=== PATIENT | male | born 1960 | race Hispanic/Latino ===

== ENCOUNTER 2024-05-09 06:10 | Day surgery (SDC) | payer OTHER ==
[2024-05-05 13:19] LABS: BASOPHILS # (AUTO) 0.03 K/uL (0.00-0.20); BASOPHILS % (AUTO) 0.8 % (0.0-5.0); EOSINOPHILS # (AUTO) 0.04 K/uL (0.00-0.70); EOSINOPHILS % (AUTO) 1.1 % (0.0-8.0); HEMATOCRIT 36.2 % (42-54); IMMATURE GRANULOCYTE ABSOLUTE 0.02 K/uL (0-1); LYMPHOCYTES # (AUTO) 1.3 K/uL (1.0-4.8); LYMPHOCYTES % (AUTO) 36.4 % (21.0-51.0); MEAN CORPUSCULAR HEMOGLOBIN 31.9 pg (27.0-33.0); MEAN CORPUSCULAR HGB CONC 33.1 g/dL (32.0-36.0); MEAN CORPUSCULAR VOLUME 96.3 fL (79-99); MONOCYTES # (AUTO) 0.4 K/uL (0.1-1.0); MONOCYTES % (AUTO) 9.6 % (3.0-13.0); NEUTROPHILS # (AUTO) 1.9 K/uL (1.8-7.7); NEUTROPHILS % (AUTO) 51.6 % (40.0-77.0); PLATELET COUNT (AUTO) 238 K/uL (130-400); RED BLOOD CELL COUNT(AUTO) 3.76 MIL/uL (4.50-6.20); RED CELL DISTRIBUTION WIDTH 12.6 % (11.0-15.5); WHITE BLOOD COUNT (AUTO) 3.7 K/uL (4.8-10.8)
[2024-05-05 13:22] VITALS: BP 139/82; PULSE 92; RESP 18; TEMP 97.1
[2024-05-05 13:27] LABS: CREATININE 5.6 mg/dL (0.5-1.3); POTASSIUM 4.1 mmol/L (3.5-5.1)
[2024-05-05 13:31] LABS: INR 1.02 (0.85-1.15); PROTHROMBIN TIME 11.4 SEC (9.6-11.6)
[2024-05-05 13:33] LABS: PARTIAL THROMBOPLASTIN TIME 33.3 SEC (26.3-35.5)
--- NOTE | 2024-05-05 14:23 | EKG ---
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
--- NOTE | 2024-05-06 16:26 | NUR ---
verified called yesterday to verify pt need to hold eliquis 3 days prior. as per janet nurse with dr massey that is correct.
--- NOTE | 2024-05-07 16:32 | NUR ---
REPORT REPORTED EKG TO DR PEREZ. OK TO PROCEED
[2024-05-09] VITALS (14 sets, daily range): BP systolic 112–160; BP diastolic 65–84; PULSE 83–97; RESP 14–18; TEMP 97.1–98.2
[~2024-05-09] VITALS: Ht 172.7 cm; Wt 121.1 kg
[~2024-05-09 06:10] MED LIST: ACET-2247 PO; APIX2.5T PO; BACI1CAP14 PO; COLL30OI TP; EPOE10003 IJ; EZET-87 PO; GABA300T26 PO; INSU100C6 SQ; INSU300I SQ; LINZESS; PANT40TA54 PO; SEVE800PW PO; SULF1TAB41 PO
[2024-05-09] MEDS ORDERED: ceFAZolin SODIUM 1 GM VIAL ONE (06:56)
[2024-05-09] MEDS: 0.9% NACL 500ML IV.SOLN 500 ML IV ONE (07:24)
[2024-05-09] MEDS ORDERED: LIDOCAINE PF 100MG/5ML (2%) SYRINGE 5ML ONE (07:30)
[2024-05-09] MEDS ORDERED: FENTanyl CITRate PF 50 MCG/1 ML 2ML VIAL ONE (07:31)
[2024-05-09] MEDS ORDERED: MIDAZOLAM HCL 1 MG/ML 2ML VIAL ONE (07:31)
[2024-05-09] MEDS ORDERED: proPOFol 10 MG/ML 20ML VIAL IV ONE (07:31)
[2024-05-09] MEDS ORDERED: rocuRONium bROMide 10MG/1ML 5ML VL ONE (07:31)
--- NOTE | 2024-05-09 08:08 | NUR ---
PATIENT WITH BILATERAL WOUNDS TO PLANTAR FEET. PATIENT STATES HAS DRESSING CHANGES DAILY BY HOME HEALTH NURSE.
[2024-05-09] MEDS ORDERED: BUPIvacaine/PF 0.25% 30ML VIAL IJ ONE (08:28)
[2024-05-09] MEDS: ceFAZolin SODIUM 2 GM VIAL IVPB ONE (08:30)
[2024-05-09] MEDS ORDERED: ondanSETRON 4MG INJ ONE (08:39)
[2024-05-09] MEDS ORDERED: GLYCOPYRROLATE 0.2 MG/ML 5 ML VIAL ONE (08:39)
[2024-05-09] MEDS ORDERED: dexaMETHasone SOD PHOSPHATE 4 MG/ML 1ML VIAL ONE (08:39)
[2024-05-09] MEDS ORDERED: NEOSTIGMINE METHYLSULFATE 1MG/ML IV ONE (08:39)
[2024-05-09] MEDS ORDERED: phenylEPHRINE HCL 10 MG/ML 1ML VIAL IV ONE (08:39)
[2024-05-09] MEDS ORDERED: HEParin 10,000 UNIT/10ML (1,000 UNIT/ML) VIAL ONE (09:05)
[2024-05-09] MEDS: IpraTROPium/alBUTERol SULFATE 3 ML SOLUTION IH ONE (10:08)
[2024-05-09] MEDS ORDERED: acetaMINOPHEN 500 MG TABLET ONE (11:05)
[2024-05-09] MEDS: HEParin-NS 1,000 UNIT/500 ML 500 ML IV ONE (11:18)
--- NOTE | 2024-05-09 14:04 | OP ---
Operative Note: DATE OF PROCEDURE: 05/09/24 SURGEON: NAM BLANCO MD CLINICAL PROGRAM DIRECTOR: [] PREOPERATIVE DIAGNOSIS: End-stage renal disease POSTOPERATIVE DIAGNOSIS: End-stage renal disease PROCEDURE: Left upper extremity brachiocephalic fistula creation INDICATIONS: Patient needs access for dialysis ESTIMATED BLOOD LOSS: []cc Devices left in place: None Anesthesia: General endotracheal DESCRIPTION OF PROCEDURE: Patient is brought to the operating room placed on the operating table in a supine position. Once general endotracheal anesthesia is achieved patient's left upper extremity up to the axilla is prepped and draped in sterile fashion. Using ultrasound we identified the cephalic vein and it was adequate for fistula creation. We therefore change the surgical plan to create a brachiocephalic fistula creation. We then proceeded to create a transverse incision at the antecubital fossa and dissected down through the skin and subcutaneous tissue to expose the cephalic vein vein. We exposed that for a length of about 6 cm. I then proceeded to release the cephalic vein in the antecubital fossa which is the upper arm and released it from attachments and any branches. Suture ligated the branches and transposed it to the medial por tion of the arm to be able to create a anastomosis. We then proceeded to expose the brachial artery for a length of about 4 cm and obtained proximal and distal control. We then asked anesthesia to give 5000 units of heparin. I then proceeded to clamp the cephalic vein proximally and distally divided it at the level of the elbow. And suture ligated the distal and end. We then proceeded to to dilate the vein with heparinized saline and ensured that there were no leaks from all the branches were clipped or sutured. I then clamped the brachial artery proximally and distally. I then proceeded to create a end-to-side anastomosis between the brachial artery and the cephalic vein at the antecubital fossa with 6-0 Prolene. I then opened up the clamp to the vein first and that there to be backflow. And then proceeded to open the proximal clamp on the artery to flush out the anastomosis and then open the distal clamp. I then proceeded to suture the anastomosis. We ensured with a Doppler that we had a strong palmar arch pulse at the left hand and ulnar and radial pulses as well. We had a good thrill throughout the fistula. We then close the skin incision in 2 layers with subcutaneous tissue being closed with 3-0 Vicryl in running fashion and the skin was closed with 4-0 Monocryl in running fashion. Dermabond was applied over top and skin dressings were applied over top patient tolerated the procedure well all counts were correct x2 at the end of the procedure. NAM BALNCO MD May 09, 2024 14:04
== END 2024-05-09 11:30 | disposition home or self-care (01) ==
LOC: DAH 06:10
PROVIDERS: ATTEND Student in an Organized Health Care Education/Training Program
DX: E11.22 Type 2 diabetes mellitus with diabetic chronic kidney disease (principal); N18.6 End stage renal disease; I25.10 Atherosclerotic heart disease of native coronary artery without angina pectoris; Z89.422 Acquired absence of other left toe(s); Z79.4 Long term (current) use of insulin; Z79.01 Long term (current) use of anticoagulants; Z79.899 Other long term (current) drug therapy
CPT/HCPCS: 80048 ×2; 85025; 85610; 85730; 36415 ×2; 93005; 36821; 82948 ×2; 94640; A6260; J1100; A4663; J7040 ×2; J3010; J0690 ×2; J0665; J3490 ×2; J2003; J1644 ×2; J2250; J2704; J2405; J2710; J2371; A4649 ×3; C1713 ×2; A4215; A4223; A4222; A4221